=== PATIENT | female | born 1940 | race Caucasian/White ===

== ENCOUNTER → 2018-05-16 | Outpatient (REF) | payer MEDICARE ==
[~2018-05-16] MED LIST: AMOXICILLIN500 MG PO; CIPROFLOXACN500 MG PO; CLONAZEP ODT1 MG OR; DEBROX6.5 % AU; FLONASE NASAL50 MCG; GABAPENTIN300 MG PO; KEFLEX500 MG PO; LEVAQUIN500 MG PO; LEVOTHROID150 MCG PO; LEVOTHROID25 MC1 PO; LEVOTHYROXIN125 MC1 PO; LEVOTHYROXIN150 MC1 PO; LEVOTHYROXIN175 MC1 PO; LEVOTHYROXIN200 MC2 PO; LIPITOR40 MG PO; LYRICA75 MG PO; ROCEPHIN 1 GM1 GM IM; SMZ-TMP DS1 TAB PO; TEGRETOL200 MG PO; ULTRAM50 MG PO; VICODIN1 TAB PO
[2018-05-16 09:16] LABS: HEMATOCRIT 43.4 % (37.0-47.0); HEMOGLOBIN 14.5 g/dl (12.0-16.0); IMMATURE GRANULOCYTES 0.5 % (0.0-5.0); MEAN CELL VOLUME 89.5 fL CALC (80.0-100.0); MEAN CORPUSCULAR HGB 29.9 pG CALC (26.0-32.0); MEAN CORPUSCULAR HGB CONC 33.4 g/L CALC (32.0-36.0); NEUT# 5.02 thou/uL (2.00-7.15); RED BLOOD COUNT 4.85 mill/uL (4.20-5.60); RED CELL DISTRI WIDTH 13.5 % (11.5-15.5)
[2018-05-16 09:17] LABS: ALBUMIN 4.2 g/dL (3.2-5.0); ALKALINE PHOSPHATASE 102 u/l (38-126); ANION GAP 14 (6-22 (CALC)); BILIRUBIN, TOTAL 0.5 mg/dL (0.0-1.4); BUN 17 mg/dL (8-23); BUN/CREATININE RATIO 25 (12-20 (CALC)); CARBON DIOXIDE 25 mmol/l (22-30); CHLORIDE 108 mmol/l (95-108); CREATININE 0.7 mg/dL (0.5-1.0); GFR > 60 ML/MIN (>=60 (CALC)); GFR FOR AFR.AMER. > 60 ML/MIN (>=60 (CALC)); POTASSIUM 4.3 mmol/l (3.5-5.1); SGOT/AST 19 u/l (9-36); SODIUM 143 mmol/l (137-146); TOTAL PROTEIN 7.2 g/dL (6.3-8.2)
[2018-05-16 09:29] LABS: CHOLESTEROL HDL RATIO 4.2 (<4.4 (CALC))
[2018-05-16 10:00] LABS: TSH, 3RD GENERATION 1.1 uIU/mL (0.47 - 4.68)
== END | disposition home or self-care (01) ==
LOC: CT 08:37
PROVIDERS: ATTEND Internal Medicine
DX: R22.1 Localized swelling, mass and lump, neck (principal); E03.4 Atrophy of thyroid (acquired); K21.9 Gastro-esophageal reflux disease without esophagitis; E78.49 Other hyperlipidemia
CPT/HCPCS: Q9967

== ENCOUNTER → 2018-09-28 | Outpatient (REF) | payer MEDICARE ==
[2018-09-28 09:24] LABS: HEMATOCRIT 46.1 % (37.0-47.0); HEMOGLOBIN 14.9 g/dl (12.0-16.0); MEAN CELL VOLUME 91.3 fL CALC (80.0-100.0); MEAN CORPUSCULAR HGB 29.5 pG CALC (26.0-32.0); MEAN CORPUSCULAR HGB CONC 32.3 g/L CALC (32.0-36.0); RED BLOOD COUNT 5.05 mill/uL (4.20-5.60); RED CELL DISTRI WIDTH 14.6 % (11.5-15.5)
[2018-09-28 09:44] LABS: ALKALINE PHOSPHATASE 92 u/l (38-126); ANION GAP 17 (6-22 (CALC)); BILIRUBIN, TOTAL 0.5 mg/dL (0.0-1.4); BUN 22 mg/dL (8-23); BUN/CREATININE RATIO 29 (12-20 (CALC)); CALCULATED LDLCHOLESTEROL 157 mg/dL (62-129 (CALC)); CARBON DIOXIDE 25 mmol/l (22-30); CHLORIDE 104 mmol/l (95-108); CHOLESTEROL HDL RATIO 3.4 (<4.4 (CALC)); CREATININE 0.8 mg/dL (0.5-1.0); GFR > 60 ML/MIN (>=60 (CALC)); GFR FOR AFR.AMER. > 60 ML/MIN (>=60 (CALC)); HDL CHOLESTEROL 82 mg/dL (>=40); POTASSIUM 4.8 mmol/l (3.5-5.1); SGOT/AST 15 u/l (9-36); SODIUM 141 mmol/l (137-146); TOTAL CHOLESTEROL 277 mg/dl (0-199); TOTAL PROTEIN 7.6 g/dL (6.3-8.2); TOTAL TRIGLYCERIDES 192 mg/dl (30-149); VLDL CHOLESTROL 38 mg/dl (0-48 (CALC))
[2018-09-28 10:05] LABS: TSH, 3RD GENERATION 0.79 uIU/mL (0.47 - 4.68)
[2018-09-28 10:24] LABS: ALBUMIN 4.8 g/dL (3.2-5.0)
== END | disposition home or self-care (01) ==
LOC: LAB 08:19
PROVIDERS: ATTEND Nurse Practitioner
DX: E03.4 Atrophy of thyroid (acquired) (principal); I10 Essential (primary) hypertension; K21.9 Gastro-esophageal reflux disease without esophagitis

== ENCOUNTER 2019-10-09 | Emergency (ER) | payer MEDICARE ==
[2019-10-09] MEDS ORDERED: LOSARTAN POTASS50 MG PO (15:46)
[2019-10-09] MEDS ORDERED: LEVOTHYROXIN125 MCG PO (15:46)
[2019-10-09] MEDS ORDERED: HYDROCO/APAP1 T11 PO (15:47)
[2019-10-09] MEDS ORDERED: GABAPENTIN100 MG PO (15:48)
== END 2019-10-09 17:25 | disposition home or self-care (01) ==
DX: S20.211A Contusion of right front wall of thorax, initial encounter (principal); S09.90XA Unspecified injury of head, initial encounter; I10 Essential (primary) hypertension; F17.210 Nicotine dependence, cigarettes, uncomplicated; W10.9XXA Fall (on) (from) unspecified stairs and steps, initial encounter; Y92.008 Other place in unspecified non-institutional (private) residence as the place of occurrence of the external cause